=== PATIENT | female | born 1950 ===

== ENCOUNTER 2020-03-10 11:35 | Inpatient (IN) | payer MEDICARE, BC ==
--- NOTE | 2020-03-10 12:37 | RAD ---
EXAM: Chest one view: HISTORY: Injury from a fall COMPARISON: None FINDINGS: Heart size: Within normal limits. Lungs: Clear of acute process. No evidence for confluent pneumonia, pleural effusion, acute edema, or pneumothorax, or other signifi cant acute process. IMPRESSION: No significant acute intrathoracic disease. Atherosclerosis of the aorta
--- NOTE | 2020-03-10 12:39 | RAD ---
Exam: AP pelvis one view: HISTORY: Injury from a fall COMPARISON: None FINDINGS: Bony demineralization. Arthrosis and degenerative change. Prominent vascular calcifications. No evidence for fracture, dislocation, or other significant acute osseous abnormality. IMPRESSION: No significant acute process.
[2020-03-10 12:40] LABS: #Lymphocytes 0.6 thou/uL (1.20-3.40); #Monocytes 1.1 thou/uL (0.11-0.59); #Neutrophils 7.5 thou/uL (1.40-6.50); %Basophils 0.2 % (0.0-1.0); %Eosinophils 0.4 % (0.0-10.0); %Lymphocytes 6.4 % (21.0-51.0); %Monocytes 11.8 % (0.0-10.0); %Neutrophils 81.2 % (42.0-75.0); Hemoglobin 12.3 g/dL (12.0-16.0); Mean Corpuscular HGB CONC 33.3 g/dL (32.0-36.0); Mean Corpuscular Hemoglobin 33.2 pg (27.0-31.0); Mean Corpuscular Volume 99.6 fL (78.0-98.0); Mean Platelet Volume 8.5 fL (7.4-10.4); Platelet Count 171 thou/uL (130-400); RBC Distribution Width 13.7 % (11.5-14.5); Red Blood Cell (RBC) Count 3.71 mill/uL (4.20-5.40); White Blood Cell (WBC) Count 9.3 thou/uL (4.8-10.8)
--- NOTE | 2020-03-10 12:40 | RAD ---
XR Hip Lt 2-3 View History: Pain after a fall Comparison: None Findings: There is a fracture of the left superior pubic ramus at the pubic root. Left inferior pubic ramus fractures also present. The femoral head and neck appear to be intact. No definite acetabular fracture. Severe vascular calcifications. Impression: Mildly displaced left superior and inferior pubic rami fractures.
[2020-03-10 12:51] LABS: ALT (SGPT) 12 U/L (8-55); AST (SGOT) 30 U/L (5-34); Albumin 3.5 g/dL (3.4-4.8); Alkaline Phosphatase 75 U/L (40-110); Anion Gap 13 mmol/L (10-20); BUN (Urea Nitrogen) 11 mg/dL (9.8-20.1); Bilirubin, Total 2.1 mg/dL (0.2-1.2); Calc. Creatinine Clearance 0 mL/min (70-130); Calcium 9.1 mg/dL (7.8-10.44); Carbon Dioxide 24 mmol/L (23-31); Chloride 106 mmol/L (98-107); Estimated GFR-MDRD 72; Globulin 2.7 g/dL (2.4-3.5); Glucose 182 mg/dL (80-115); Protein, Total 6.2 g/dL (6.0-8.3); Sodium 139 mmol/L (136-145)
[2020-03-10 12:57] LABS: Bacteria/HPF 4+ HPF (None Seen); Bilirubin Negative (Negative); Blood, Urine 1+ (Negative); Clarity Extra Turbid (Clear); Glucose, Urine (Dipstick) Normal (Negative); Ketone, Urine Negative (Negative); Leukocyte 500 Leu/uL (Negative); Nitrite Negative (Negative); Protein, Urine (Dipstick) 20 mg/dL (Neg-Trace); RBC/HPF 0-3 HPF (0-3); Specific Gravity, Urine 1.015 (1.002-1.036); Squamous Epithelial 0-3 HPF (0-3); Urobilinogen Normal mg/dL (Less than 2); WBC/HPF Greater than 50 HPF (0-3); pH, Urine 5.5 (5.0-9.0)
--- NOTE | 2020-03-10 13:06 | CT ---
EXAM: Brain CTWithout contrast: HISTORY: Injury from a fall COMPARISON: None FINDINGS: No focal mass or midline shift. No intra or extra-axial hemorrhage. Sinuses and mastoids are clear of acute process. IMPRESSION: No mass or bleed or other significant acute intracranial process.
[2020-03-10] MEDS ORDERED: cefTRIAXone\\ROCEPHIN 1 GM VIAL ONE (13:25)
--- NOTE | 2020-03-10 13:29 | CT ---
Exam: Lumbar spine CT scan without IV contrast: HISTORY: Injury from a fall with pain FINDINGS: Bony demineralization. There is a very slightly comminuted essentially nondisplaced vertical slightly oblique fracture through the left sacral alar region with a horizontal component at S2. The SI joints demonstrate some osteoarthrosis change but are not abnormally widened. There are very extensiv e vascular calcifications. There is a right-sided pelvic kidney, presumably a transplanted kidney. No evidence for acute lumbar spine fracture. Pars defect at L5 with very minute anterolisthesis. No s ignificant moderate to severe lumbar stenosis. Possible small faint gallstone/stones/sludge. IMPRESSION: No evidence for acute fracture or dislocation of the lumbar spine. Pars defects at L5 bilaterally with very mild grade 1 anterolisthesis. Left sacral alar fracture. Evidence for a right-sided pelvic, probably transplanted kidney
[2020-03-10 15:50] LABS: INR-International Normal Ratio 1.1
[2020-03-10 15:51] LABS: PTT 28.7 sec (22.9-36.1)
[2020-03-10 16:14] LABS: Troponin I 6.988 ng/mL (< 0.028)
[2020-03-10] MEDS ORDERED: Aspirin Chewable 81 MG TAB ONE (16:18)
[2020-03-10 16:44] LABS: Magnesium 1.8 mg/dL (1.6-2.6); Phosphorus 3.3 mg/dL (2.3-4.7)
[2020-03-10] MEDS ORDERED: Magnesium 2 GM/50 ML 2 GM in Premix Bag 1 BAG IVPB SCH (17:30)
[2020-03-10] MEDS ORDERED: Ondansetron ODT 4 MG TAB PO PRN (19:36)
[2020-03-10] MEDS ORDERED: Ondansetron PF 4 MG/2 ML Vial IVP PRN (19:36)
[2020-03-10] MEDS ORDERED: Acetaminophen 325 MG TAB PO PRN (19:36)
[2020-03-10] MEDS ORDERED: Loratadine 10 MG TAB PO PRN (19:55)
[2020-03-10] MEDS ORDERED: Acetaminophen 500 MG TAB PO PRN ×2 (20:05→21:16)
[2020-03-10] MEDS ORDERED: traMADol HCl 50 MG TAB PO PRN (20:08)
[2020-03-10 20:28] LABS: CKMB 6.8 ng/mL (0-6.6)
[2020-03-10 20:29] VITALS: BMI 22.1
--- NOTE | 2020-03-10 20:51 | PDOC.FPRHP ---
- History of Present Illness Chief Complaint: Fall History of Present Illness: 69 y/o F reports to ED today after being found by her son at home this morning, down after a fall yesterday. Pt states that she fell around 4:30-5pm after getting up from her dinner table. She stated the she felt a bit dizzy and lost her balance and was unable to get to her phone that was on the table. She endorsed visual and auditory hallucinations, which is not something new that she experiences. But stated that she sees "people" in her attic who live there and talk to her. In speaking with her son, he stated that patient was having some memory issues over the past few months, but is otherwise able to care for herself and babysits her grandchildren regularly. ED Course: In the ED pt was teixeira scanned and L superior ischial ramus and inferior ischiopubic ramus fracture was found. UA showed UTI. Trop was 6.98, no EKG changes. She was given ASA and 1g of rocephin. - Allergies/Adverse Reactions Allergies Allergy/AdvReac Type Severity Reaction Status Date / Time No Known Allergies Allergy Unverified 03/10/20 17:17 - Home Medications Medication Instructions Recorded Confirmed Type Amlodipine [Norvasc] 5 mg PO DAILY 03/10/20 03/10/20 History Ascorbic Acid [Vitamin C Chewable 250 mg PO DAILY 03/10/20 03/10/20 History Tablet] Atorvastatin Calcium 40 mg PO DAILY 03/10/20 03/10/20 History Cholecalciferol (Vitamin D3) 5,000 unit PO DAILY 03/10/20 03/10/20 History [Vitamin D3] Cyanocobalamin (Vitamin B-12) 1,000 mcg SL DAILY 03/10/20 03/10/20 History [Vitamin B-12] Ergocalciferol (Vitamin D2) 1,250 mcg PO SEEPHYS 03/10/20 03/10/20 History [Vitamin D2] Fexofenadine HCl [Devi Allergy] 180 mg PO DAILY 03/10/20 03/10/20 History Levothyroxine Sodium 25 mcg PO DAILY 03/10/20 03/10/20 History Magnesium 400 mg PO BID 03/10/20 03/10/20 History NIFEdipine [Nifedipine ER] 30 mg PO DAILY 03/10/20 03/10/20 History predniSONE [Prednisone] 5 mg PO DAILY 03/10/20 03/10/20 History Acetaminophen [Tylenol Extra 1,000 mg PO Q8H PRN tab 03/12/20 Rx Strength] Aspirin [Ecotrin Low Strength] 81 mg PO DAILY tab 03/12/20 Rx Carvedilol [Coreg] 12.5 mg PO BID-WM tab 03/12/20 Rx Enoxaparin Sodium [Lovenox] 60 mg SC 0900,2100 syringe 03/12/20 Rx Metoclopramide [Reglan Oral 5 mg PO ACHS udcup 03/12/20 Rx Solution] Ondansetron [Zofran ODT] 4 mg PO Q6H PRN tab 03/12/20 Rx Tacrolimus [Prograf] 1 mg PO HS cap 03/12/20 Rx Tacrolimus [Prograf] 2 mg PO QAM cap 03/12/20 Rx cefTRIAXone\\ROCEPHIN [Rocephin] 1 gm IVPB 1300 vial 03/12/20 Rx hydrALAZINE [Apresoline] 10 mg PO DAILY tab 03/12/20 Rx traMADol HCl [Ultram] 50 mg PO Q6H PRN tab 03/12/20 Rx - History PMHx: -dimentia -hypothyroidism -HTN -s/p kidney transplant -hx of DVT -hx of c. diff PSHx: -kidney transplant, 2016 -AV fistula, 2017 -IVC placed and removed -tubal ligation -tonsillectomy -bl cataract FHx: -mother and father: [place] Social: -lives alone. no etoh, drug use. former smoker. - Review of Systems General: denies: fever/chills, fatigue Eyes: denies: eye pain, vision changes ENT: denies: nasal congestion Respiratory: denies: cough, congestion, shortness of breath Cardiovascular: denies: chest pain, palpitation Gastrointestinal: denies: nausea, vomiting, diarrhea, constipation, abdominal pain Genitourinary: reports: dysuria. denies: incontinence, polyuria Skin: denies: rashes, lesions Musculoskeletal: reports: pain. denies: swelling Neurological: reports: other (no headache). denies: syncope Psychological: reports: other (visual and auditory hallucinations). denies: anxiety, depression - Vital signs BP: 149/66, HR 74, RR 16, O2 96, Temp 97.8 - Physical Exam Constitutional: NAD, awake, alert and oriented HEENT: normocephalic and atraumatic, grossly normal hearing Neck: supple, FROM Heart: RRR, normal S1/S2, other (grade 2 systolic, cresendo-decresendo murmur) Lungs: CTAB, no respiratory distress, good air movement, no rales/rhonchi, no wheezing Abdomen: soft, non-tender, bowel sounds present, no masses/distention Musculoskeletal: normal structure, other (limited ROM in left leg 2/2 pain) Neurological: no focal deficit, CN II-XII intact (grossly) Skin: no rash/lesions Heme/Lymphatic: other (scattered purpura noted on UEs) Psychiatric: normal mood and affect, good judgment and insight, intact recent and remote memory (A&O x3, was able to remember correct dates of procedures, addresses of physician offices, names of physicians she sees), other (+ visual and auditory hallucinations) FMR H&P: Results - Labs Result Diagrams: 03/10/20 12:22 03/12/20 06:34 Lab results: WBC 9.3 thou/uL (4.8-10.8) 03/10/20 12:22 Hgb 12.3 g/dL (12.0-16.0) 03/10/20 12:22 Hct 37.0 % (36.0-47.0) 03/10/20 12:22 MCV 99.6 fL (78.0-98.0) H 03/10/20 12:22 Plt Count 171 thou/uL (130-400) 03/10/20 12:22 Neutrophils % 81.2 % (42.0-75.0) H 03/10/20 12:22 Sodium 139 mmol/L (136-145) 03/10/20 12:22 Potassium 4.0 mmol/L (3.5-5.1) 03/10/20 12:22 Chloride 106 mmol/L (98-107) 03/10/20 12:22 Carbon Dioxide 24 mmol/L (23-31) 03/10/20 12:22 BUN 11 mg/dL (9.8-20.1) 03/10/20 12:22 Creatinine 0.79 mg/dL (0.6-1.1) 03/10/20 12:22 Glucose 182 mg/dL (80-115) H 03/10/20 12:22 Calcium 9.1 mg/dL (7.8-10.44) 03/10/20 12:22 Total Bilirubin 2.1 mg/dL (0.2-1.2) H 03/10/20 12:22 AST 30 U/L (5-34) 03/10/20 12:22 ALT 12 U/L (8-55) 03/10/20 12:22 Alkaline Phosphatase 75 U/L (40-110) 03/10/20 12:22 Creatine Kinase 233 U/L (29-168) H 03/10/20 12:22 CK-MB (CK-2) 6.8 ng/mL (0-6.6) H* 03/10/20 19:33 Serum Total Protein 6.2 g/dL (6.0-8.3) 03/10/20 12:22 Albumin 3.5 g/dL (3.4-4.8) 03/10/20 12:22 Urine Ketones Negative mg/dL (Negative) 03/10/20 12:41 Urine Blood 1+ (Negative) A 03/10/20 12:41 Urine Nitrite Negative (Negative) 03/10/20 12:41 Ur Leukocyte Esterase 500 Kevin/uL (Negative) A 03/10/20 12:41 Urine RBC 0-3 HPF (0-3) 03/10/20 12:41 Urine WBC Greater than 50 HPF (0-3) A 03/10/20 12:41 Ur Squamous Epith Cells 0-3 HPF (0-3) 03/10/20 12:41 Urine Bacteria 4+ HPF (None Seen) A 03/10/20 12:41 - EKG Interpretation EKG: -normal sinus rhythm, LVH, left atrial enlargement, no ST changes - Radiology Interpretation Other Status: image reviewed by me, report reviewed by me (Hip XR: midly displaced left superior and inferior pubic rami fractures. Pelvic XR: fractures of left superior ischial ramus and inferior ischiopubic ramus. Lumbar CT: no evidence for acute dislocation of lumbar spine. pars defects at L5 bilaterally with very mild grade 1 anteriolisthesis. left sacral alar fracture. evidence for a right sided pelvic, transplanted kidney.) Chest x-ray Status: image reviewed by me, report reviewed by me (no acute process, atherosclerosis of aorta) CT scan - head Status: image reviewed by me, report reviewed by me (no acute bleed) FMR H&P: A/P - Problem List (1) UTI (urinary tract infection) Status: Acute (2) Fall Status: Acute Code(s): W19.XXXA - UNSPECIFIED FALL, INITIAL ENCOUNTER (3) Dementia Status: Acute Code(s): F03.90 - UNSPECIFIED DEMENTIA WITHOUT BEHAVIORAL DISTURBANCE (4) Elevated troponin Status: Acute Code(s): R79.89 - OTHER SPECIFIED ABNORMAL FINDINGS OF BLOOD CHEMISTRY (5) Hypothyroidism Status: Acute Code(s): E03.9 - HYPOTHYROIDISM, UNSPECIFIED (6) Hx of deep venous thrombosis Status: Acute Code(s): Z86.718 - PERSONAL HISTORY OF OTHER VENOUS THROMBOSIS AND EMBOLISM (7) Status post kidney transplant Status: Acute Code(s): Z94.0 - KIDNEY TRANSPLANT STATUS (8) Hypertension Status: Acute Code(s): I10 - ESSENTIAL (PRIMARY) HYPERTENSION - Plan ## Pelvic fracture -s/p fall -non operative, formally consult ortho in AM -OT/PT consult -bed rest -prn pain control ## Elevated troponin/NSTEMI -EKG: no ST changes -trop trend: 6.98 --> 7.44 --> 6.48 -continue to trend troponin -on therapeutic dose of eliquis -echo ordered -consulted cardiology, will see in AM ## UTI w/o sepsis -urine culture pending -rocephin started 03/10 -afebrile, no WBC, no systemic signs of infection ## HTN -home meds: amlodipine, coreg, hydralyzine ## Dimentia -per son, pt has been having memory issues for past few months -family history of Alzheimers in parents -not on medications ## Hypothyroidism -home med: levothyroxine -TSH 1.99 ## s/p r renal transplant -on tacrolimus, prednisone ## hx of DVT -x2 in L leg -IVC placed and removed in past -on eliquis at home VTE PPX: eliquis GI PPX: none Diet: NPO at 12AM IVF: LR Code: Full PCP: Alexandr Contacts: Sebastien (son) [phone]. Dr. Mac Rucker (state patrol officer) [phone] Dispo: admitted inpatient, telemetry. cardiology to see pt in AM. consult ortho in AM and f/u with recommendations. FMR H&P: Upper Level - Plan Date/Time: 03/10/202047 I, Alia Melvin, have evaluated this patient and agree with findings/plan as outlined by lab intern resident. Pertinent changes/additions are listed here. 69YOF with PMH notable for HTN, hypothyroidism & Hx of renal transplant who presented to the ED today after being found down at home by her son at home earlier this morning. Per the patient, she reports that after dinner yesterday evening she states fell on or tripped over a table in her home. She stated that prior to the fall she felt dizzy and lost her balance and was unable to get up to get to her phone to call for help. She and her son confirm that he found her when he stopped by her house to check on her around ~1000 today. He then called the ambulance to take her to the ED for further evaluation. Of note, the patient endorsed visual and auditory hallucinations following her fall. Reported that she saw "people with cats" in her attic who were talking to her. She reports that last time she had similar hallucinations was when she was hospitalized for her renal transplant. Only other pertinent symptoms on ROS were left hip pain & dysuria. On evaluation in the ED a workup was done for her confusion and fall including which was notable for a L superior & inferior rami fractures. Her UA was dirty c/w a UTI as well. Lastly, a troponin was ordered by the hospitalist who was initially called to admit the patient which did result + at 6.9. However, that patient's initial & repeat EKGs were WNLs in NSR & she never endorsed any chest pain. Her Mg level was 1.8 and her folate was also low at 6.4. She was given 324mg PO ASA, 1g of Rocephin, & 2g of IV Mg in the ER. On exam the patient did endorse hearing & seeing things that were not there while she was at home. She was in NAD & did have a 3/6 systolic ejection murmur noted on exam. She also had limited ROM in her left hip/leg 2/2 pain. Regarding her left hip fracture, ortho was consulted in the ED and reported that the fracture was non-surgical and that they would see the patient in the AM. Will place a formal consult. PT & OT consulted as well. Regarding her acute psychosis/encephalopathy 2/2 her UTI, will continue IV rocephin 1g QD pending Cx results for sensitivities. Regarding her elevated troponin, Cardiology, Dr. Jerome, was initially consulted by the hospitalists. After discussing the case with him, will increase home Eliquis to Th dosing and continue to trend her troponins. ECHO ordered as patient also had a notable murmur on exam. Cards to see in the AM as long as she remains stable. For her folate deficiency, will continue folvite which was started by the hospitalists. Will resume her home meds for her other chronic conditions. Addendum - Attending - Attending Attestation Date/Time: 04/04/20 [id number] I personally evaluated the patient and discussed the management with Dr. [] I agree with the History, Examination, Assessment and Plan documented above with any addition or exceptions noted below - 69 y/o F with h/o hypothyroidism, HTN, s/p renal transplant, h/o DVT brought to ED today after being found by her son at home this morning, down after a fall yesterday. Pt states that she fell around 4:30-5pm after getting up from her dinner table. She stated the she felt a bit dizzy and lost her balance and was unable to get to her phone that was on the table. She endorsed visual and auditory hallucinations, which is not something new that she experiences. But stated that she sees "people" in her attic who live there and talk to her. In speaking with her son, he stated that patient was having some memory issues over the past few months, but is otherwise able to care for herself and babysits her grandchildren regularly. PMH/PSH/Meds/SH reviewed and agree with resident's documentation. Afebrile VSS Exam repeated by me and agree with resident's findings. A/P: 1)
[2020-03-10] MEDS: Metoclopramide 10 MG/10 ML UDCUP PO SCH (20:57)
[2020-03-10] MEDS: Folic Acid 1 MG TAB PO SCH (20:58)
[2020-03-10] MEDS: Atorvastatin Calcium 40 MG TAB PO SCH (20:58)
[2020-03-10] MEDS ORDERED: Apixaban 5 MG TAB PO SCH (21:00)
[2020-03-10] MEDS ORDERED: hydrALAZINE 20 MG/ML VIAL SLOW IVP PRN (21:24)
[2020-03-10] MEDS ORDERED: Magnesium 2 GM/50 ML 1 GM in Premix Bag 1 BAG IVPB SCH (21:30)
[2020-03-10] MEDS ORDERED: Lactated Ringer's 1,000 ML IV SCH (21:30)
[2020-03-10 22:46] LABS: Bilirubin, Direct 0.6 mg/dL (0.1-0.3); Bilirubin, Total 1.7 mg/dL (0.2-1.2)
[2020-03-10 22:55] LABS: Critical Call Chem Troponin I RESULT DECREASING
[2020-03-11] MEDS: traMADol HCl 50 MG TAB PO PRN ×2 (00:04→14:31)
[2020-03-11 04:51] LABS: ALT (SGPT) 9 U/L (8-55); AST (SGOT) 22 U/L (5-34); Albumin 3.1 g/dL (3.4-4.8); Alkaline Phosphatase 64 U/L (40-110); Anion Gap 9 mmol/L (10-20); BUN (Urea Nitrogen) 12 mg/dL (9.8-20.1); Bilirubin, Total 1.3 mg/dL (0.2-1.2); Calc. Creatinine Clearance 68 mL/min (70-130); Calcium 8.4 mg/dL (7.8-10.44); Carbon Dioxide 27 mmol/L (23-31); Chloride 105 mmol/L (98-107); Estimated GFR-MDRD 75; Globulin 2.4 g/dL (2.4-3.5); Glucose 148 mg/dL (80-115); Magnesium 2.2 mg/dL (1.6-2.6); Potassium 3.6 mmol/L (3.5-5.1); Protein, Total 5.5 g/dL (6.0-8.3); Sodium 137 mmol/L (136-145)
[2020-03-11 04:58] LABS: Critical Call Chem Troponin I RESULT DECREASING
[2020-03-11 05:16] LABS: CKMB 4.7 ng/mL (0-6.6)
--- NOTE | 2020-03-11 05:56 | PDOC.FM ---
- Subjective Subjective: No acute events overnight. Admitted for fall leading to pelvic fracture, subsequently found to have asymptomatic NSTEMI. She continues to deny any chest pain, SOB, diaphoresis, N/V. Reports she has been having intermittent dizziness for some time, described as lightheadedness upon standing. This is worse when she is in her house, without air conditioning. She states that she always feels cold and does not like to use the air conditioning. - Objective Vital Signs & Weight: Vital Signs (12 hours) Temp Pulse Resp BP BP Pulse Ox 03/11/20 03:08 98.9 F 80 18 138/59 L 93 L 03/10/20 23:55 98.2 F 77 18 130/58 L 95 03/10/20 20:30 74 20 166/73 H 95 03/10/20 20:00 95 03/10/20 19:15 98.3 F 71 20 219/90 H 95 Weight Weight 62.233 kg I&O: 03/09/20 03/10/20 03/11/20 06:59 06:59 06:59 Output Total 700 Balance -700 Result Diagrams: 03/10/20 12:22 03/11/20 03:52 EKG Reviewed by me: Yes (Tele reviewed, NSR) Phys Exam - Physical Examination Constitutional: NAD HEENT: PERRLA dry MMs, poor dentition Neck: no nodes, supple, full ROM Respiratory: no wheezing, no rales, no rhonchi, clear to auscultation bilateral Cardiovascular: RRR systolic murmur 3/6 RUSB Gastrointestinal: soft, non-tender, no distention, positive bowel sounds Musculoskeletal: no edema, pulses present Neurological: non-focal Lymphatic: no nodes Psychiatric: A&O x 3 Skin: no rash Deviation from normal: diffuse senile purpura on extremities Dx/Plan - Plan Plan: ## Pelvic fracture -s/p fall on 03/09 -non operative, ortho consulted, f/u recs -OT/PT consult -bed rest -prn pain control ## Elevated troponin/NSTEMI -EKG: no ST changes -trop trend: 6.98 --> 7.44 --> 6.48 --> 4.3 -continue to trend troponin -received therapeutic eliquis; will discontinue and change to lovenox in preparation for catheterization, likely Saturday -echo ordered -consulted cardiology, f/u recs -advanced to heart healthy diet since will be a few days before cath can be performed ## UTI w/o sepsis -urine culture pending -rocephin started 03/10 -afebrile, no WBC, no systemic signs of infection ## HTN -home meds: amlodipine, coreg, hydralyzine ## Dementia -per son, pt has been having memory issues for past few months -family history of Alzheimers in parents -not on medications -A&O x4 today ## Hypothyroidism -home med: levothyroxine -TSH 1.99 ## s/p r renal transplant -on tacrolimus, prednisone -sees Dr. Mac Rucker, nephro, ## hx of DVT -x2 in L leg -IVC placed and removed in past -on eliquis at home, will hold and use lovenox VTE PPX: lovenox GI PPX: none Diet: Heart Healthy IVF: LR Code: Full PCP: Alexandr Contacts: Sebastien (son) [phone]. Dr. Mac Rucker (administrative support clerk) [phone] Dispo: admitted inpatient, telemetry. cardiology and ortho to see. ELOS >2 days. Addendum - Attending - Attending Attestation Date/Time: 03/11/20 3850 I personally evaluated the patient and discussed the management with Dr. Quintero I agree with the History, Examination, Assessment and Plan documented above with any addition or exceptions noted below. Cards for NSTEMI. Ortho for pelvic armin fracture. Checking BNP. Holding antihypertensives 2/2 low BP. f/u specialist recs.
[2020-03-11] MEDS: Levothyroxine Sodium 25 MCG TAB PO SCH (06:15)
[2020-03-11 06:17] LABS: Hemoglobin A1c 5.5 % (4.0-6.0)
[2020-03-11] MEDS ORDERED: Carvedilol 25 MG TAB PO SCH (08:00)
[2020-03-11 08:50] LABS: Cardiac Risk 3.8 (Less than 4.5)
[2020-03-11] MEDS: Metoclopramide 10 MG/10 ML UDCUP PO SCH ×4 (09:02→20:57)
[2020-03-11] MEDS: Enoxaparin Sodium 60 MG/0.6 ML SYRINGE SC SCH ×2 (09:02→20:58)
[2020-03-11] MEDS: Folic Acid 1 MG TAB PO SCH ×2 (09:02→20:58)
[2020-03-11] MEDS: Amlodipine 5 MG TAB PO SCH (09:03)
[2020-03-11] MEDS: Ascorbic Acid 500 mg Chewable Tablet PO SCH (09:03)
[2020-03-11] MEDS: Cholecalciferol 1,000 UNITS (25 MCG) TAB PO SCH (09:03)
[2020-03-11] MEDS: hydrALAZINE 10 MG TAB PO SCH (09:04)
[2020-03-11] MEDS: predniSONE 5 MG TAB PO SCH (09:04)
--- NOTE | 2020-03-11 09:10 | CON ---
DATE OF CONSULTATION: 03/11/2020 REQUESTING PHYSICIAN: Family Medicine. CONSULTING PHYSICIAN: Addison Gunn MD REASON FOR CONSULTATION: Left pubic rami fractures. HISTORY OF PRESENT ILLNESS: This is a 69-year-old female, who was found down at her home after a fall. The patient states that she fell and was unable to get up. She states that she was lying on the floor for approximately 17 hours before somebody found her. Upon workup in the Emergency Department, she was found to have left superior and inferior pubic rami fracture. We have been consulted for this reason. She was also found to have a urinary tract infection as well as elevated cardiac enzymes. She has been admitted to the telemetry floor and is under the care of the Family Medicine Service. Currently, at bedside, the patient reports left groin pain that is worse with movement and relieved with rest. No distal numbness or tingling. It is greater on the left side than the right, but when she rolls onto either side, it does reproduce pain in the left groin. She denies any other orthopedic complaints at this time. She states she normally ambulates at home without any assistive aid, but has utilized a walker in the past after a prolonged hospital stay and has a walker available at home for use. PAST MEDICAL HISTORY: Significant for dementia, hypothyroidism, hypertension, status post kidney transplant, history of DVT, and history of C diff. PAST SURGICAL HISTORY: Kidney transplant in 2017, AV fistula in 2017, IVC placed and removed, tubal ligation, tonsillectomy, bilateral cataracts. FAMILY HISTORY: Reviewed and noncontributory. SOCIAL HISTORY: The patient lives alone. She is a former smoker. No alcohol or drug use. She independently ambulates. REVIEW OF SYSTEMS: Ten-point review of systems conducted and otherwise negative except for stated above. PHYSICAL EXAMINATION: VITAL SIGNS: Current vital signs including temperature of 98.9, pulse of 80, respiratory rate of 18, blood pressure of 138/59, and O2 saturation of 93 on room air. GENERAL: The patient is awake and alert. She is pleasant and cooperative with exam today. She is in no apparent distress. HEENT: Head is normocephalic and atraumatic. NECK: Supple. Trachea midline. Breathing nonlabored. EXTREMITIES: Evaluation of the bilateral lower extremities shows the right lower extremity to be held in a position of comfort with a pillow propped up behind the knee. The left lower extremity is in extension at the hip, extension at the knee. [place] does reproduce pain at the left hip. Pain with passive range of motion of the hip. Knee is nontender. No pain with rocking of the pelvis. Right lower extremity and bilateral upper extremities show no acute injuries or deformities. She does have full range of motion in these. RADIOGRAPHIC FINDINGS: Today, reviewed including views of the left hip demonstrate pubic rami fractures. ASSESSMENT: Left pubic rami fractures. PLAN: At this point, plan will be nonoperative management. The patient may weightbear as tolerated. She will need an assistive device such as a walker. She may be limited by her own pain. No surgical intervention is anticipated at this time. She may follow up in our office for a re-evaluation in 4 to 6 weeks. Please re-consult Orthopedics for any future concerns. Job ID: [id number]
[2020-03-11] MEDS ORDERED: Aspirin 81 mg Enteric Coated Tablet PO SCH (11:30)
[2020-03-11] MEDS ORDERED: cefTRIAXone\\ROCEPHIN 1 GM in Sodium Chloride 0.9% 100 ML IVPB SCH (13:00)
--- NOTE | 2020-03-11 15:37 | CON ---
DATE OF CONSULTATION: HISTORY OF PRESENT ILLNESS: Sparkle Nicole is a 69-year-old white female with history of renal transplantation. She states she has never been told that she had any type of heart problem in the past and has undergone evaluations previously. She was found down by her son yesterday morning. The patient stated that she became dizzy and tripped over a table; however, there is not a table where she says there was that she tripped over. She was on the floor for approximately 17 hours according to the patient. There were people living in her attic and cats there that she talked to and had hallucinations. Apparently, that is not a common problem for her, although she has been having worsening memory. She has been found to have a nondisplaced fractured pelvis and no other significant physical trauma from the fall. She was found to have abnormal troponin-I. She denies any chest discomfort or shortness of breath in the past nor after the fall. PAST MEDICAL HISTORY: 1. History of DVT in August 2004 and in 07/2006. She states that she had an IVC placed in 07/2017 around the time of her renal transplant, but ultimately, the IVC filter was removed. Currently, she is on Eliquis 2.5 mg b.i.d. at home; ( however, since being admitted, that has been increased to 10 b.i.d. for unclear reasons to me). 2. Hypertension. 3. Hypercholesterolemia. 4. Dementia. 5. Hypothyroidism. OPERATIONS: 1. Renal transplant. 2. IVC filter placement and removal. 3. Tubal ligation. 4. Bilateral cataract surgery. 5. Tonsillectomy. MEDICATIONS: 1. Amlodipine 5 mg q.a.m. 2. Eliquis 2.5 b.i.d. 3. Atorvastatin 40 daily. 4. Carvedilol 25 mg daily. 5. Devi 180 daily. 6. Hydralazine 100 mg daily. 7. Levothyroxine 25 mcg daily. 8. Magnesium 400 mg b.i.d. 9. Metoclopramide 5 b.i.d. 10. Nifedipine 30 daily. 11. Prednisone 5 mg daily. 12. Tacrolimus 1 mg t.i.d. ALLERGIES: NONE. SOCIAL HISTORY: She does not smoke at the present time, although she did in the past. FAMILY HISTORY: Negative for coronary artery disease. REVIEW OF SYSTEMS: Ten-point review of systems is otherwise unremarkable. PHYSICAL EXAMINATION: VITAL SIGNS: Blood pressure 149/67 and pulse of 75. HEENT: PERRL. NECK: Supple. CHEST: Clear. CARDIAC: S1 and S2 are normal without any S3 or S4. There is a 2/6 systolic murmur along both upper sternal borders. Carotid upstrokes normal without bruits. ABDOMEN: Normal bowel sounds without tenderness or organomegaly. EXTREMITIES: No clubbing, cyanosis, or edema. NEUROLOGIC: Grossly intact. SKIN: Warm and dry. LABORATORY DATA: EKG reveals normal sinus rhythm with inverted T-wave in lead III, but no acute changes. Hemoglobin 12.3, hematocrit 37.0, white count 9300, and platelets 171,000. INR 1.1. Sodium 137, potassium 3.6, chloride 105, carbon dioxide 27, BUN 12, creatinine 0.76, and glucose 143. Troponin-I is up to 0.7440. Cholesterol 155, triglycerides 151, HDL 41, and LDL 84. TSH is normal. CK 233 and CK-MB 6.8. IMPRESSION: 1. Fall at home. She stated that she remembers falling, remembers hitting her shoulder when she hit the floor. I doubt that she had a syncopal episode. 2. Hrk-[id number]-gofbmdpye myocardial infarction, probably type 1 with the current elevation of the troponin-I. 3. History of deep vein thrombosis, on chronic suppressive therapy with Eliquis 2.5 b.i.d. In the hospital, she was placed on 10 mg b.i.d. for unclear reasons. 4. Hypertension. 5. Hypercholesterolemia. 6. Status post renal transplant. 7. Hypothyroidism. 8. Pelvic fracture from fall. 9. Probable urinary tract infection. RECOMMENDATIONS: With receiving Eliquis 10 mg last night, the patient is not a candidate for cardiac catheterization at this time. Eliquis will be discontinued, instead she will be placed on Lovenox 1 mg/kg b.i.d. Also, she will be started on aspirin. With troponin-I this high, it is recommended she undergo cardiac catheterization. Also, echocardiogram will be performed to assess her murmur. Risks of cardiac catheterization were discussed with the patient as well as with her son, Sebastien, by phone at a later time. Risks include , myocardial infarction , dye reaction, vascular injury, CVA, transfusion, limb loss, renal loss, etc. Also risk of intervention with PTCA and stent placement were discussed including , myocardial infarction, emergent CABG, restenosis, stent thrombosis, vessel perforation, etc. She has no history of gastrointestinal bleeding or CVA. She has no upcoming surgeries, and overall, it is recommended that a drug-eluting stent be placed if needed. However, it sounds as if the son wishes her to be transferred to [place]. Job ID: [id number] MTDD
--- NOTE | 2020-03-11 16:32 | PQF ---
2018 [facility] Updated: CLINICAL DOCUMENTATION CLARIFICATION FORM: Patient Name: LEIA MARTINEZ Date of : 1950 Account: [id number] Admit Date: 03/10/2020 Facility: [facility] Dr. Hopkins / Dr. Quintero Date: 03/14/20 Please exercise your independent, professional judgment in responding to the clarification form. Clinical indicators are provided on the bottom of this form for your review. Please check appropriate box(es): [ x ] Encephalopathy: Type: [ x ] Acute [ ] Subacute [ ] Chronic Etiology: [ ] Hypertensive [ x ] Metabolic [ ] Toxic [ ] Hepatic w/o Coma [ ] Wernickes [ ] Drug induced: [ ] In the setting of underlying dementia [ ] Unspecified [ ] Other (please specify) [ ] Transient Alteration of Awareness [ ] Other diagnosis [ ] Unable to determine In addition, please specify: Present on Admission (POA): [ x ] Yes [ ] No [ ] Unable to determine For continuity of documentation, please document condition throughout progress notes and discharge summary. Thank You. To be completed by CDI/Coding staff for physician review: CLINICAL INDICATORS - SIGNS / SYMPTOMS / LABS / RESULTS AND LOCATION IN EMR ER NOTE: PATIENT SEEING PEOPLE ON THE CEILING THAT WERE LIVING IN HER ATTIC. H&P: "ENCEPHALOPATHY" RISKS: UTI (ER NOTE) H/O DEMENTIA (ER NOTE) TREATMENT: IV ROCEPHIN (ER-PRESENT) LACTATED RINGERS (03/10-03/11) BLOOD CULTURES 03/[address] 03/10 CDS Signature: Hannah Moser RN Phone #: [phone] Date 03/11/20 This is a permanent part of the Medical Record [facility]
--- NOTE | 2020-03-11 16:44 | CON ---
DATE OF CONSULTATION: SERVICE: Renal Medicine. HISTORY OF PRESENT ILLNESS: Ms. Nicole is 69-year-old white female, who presented to the ER due to a fall. She was found to have pelvic fractures. Of interest, this patient is a status post cadaveric renal transplant - July 2017, hence the consultation with Nephrology. Renal function has been holding steady since the transplant. REVIEW OF SYSTEMS: Positive for a fall. No chest pain. No shortness of breath. No nausea. No vomiting. No diarrhea. No constipation. Appetite and energy level are fair. No headache. No diplopia. Positive for increased forgetfulness. Positive for occasional auditory and visual hallucination. No dysuria. No urinary frequency. No productive cough. No fever or chills. No hematochezia. No melena. HOME MEDICATIONS: Include; 1. Amlodipine 5 mg tablet once a day. 2. Eliquis 2.5 mg p.o. b.i.d. 3. Ascorbic acid 250 mg daily. 4. Atorvastatin 40 mg daily. 5. Carvedilol 25 mg p.o. daily. 6. Vitamin D3 of 5000 international units daily. 7. Vitamin B12 of 1000 mcg daily. 8. Vitamin D2 of 1250 mcg daily. 9. Levothyroxine 25 mcg daily. 10. Magnesium 400 mg p.o. b.i.d. 11. Metoclopramide 5 mg p.o. b.i.d. 12. Nifedipine ER 30 mg once a day. 13. Tacrolimus 2 mg in the morning and 1 mg at night. 14. Prednisone 5 mg once a day. 15. Hydralazine 100 mg p.o. daily ? PAST MEDICAL HISTORY: 1. History of dementia. 2. Status post ESRD. 3. Hypothyroidism. 4. Status post DVT. 5. Status post C difficile colitis. 6. The patient has history of hypertension. PAST SURGICAL HISTORY: Status post cadaveric renal transplant - July 2017, status post AV fistula, status post IVC placement with subsequent removal, status post tonsillectomy, status post bilateral tubal ligation, status post cataract surgery, and history of status post IVC filter with subsequent removal. SOCIAL HISTORY: The patient is , lives alone, 2 children. Retired employee of [employer]. Education, high school. Smoked for 20 years, one pack a day. Alcohol, currently none. No IV drug abuse. [place] [address] Sedentary lifestyle. FAMILY HISTORY: No family history of ESRD. ALLERGIES: NO KNOWN DRUG ALLERGIES. TRAUMA: None. IMMUNIZATIONS: Up-to-date. HOSPITALIZATIONS: Please see past medical history. PHYSICAL EXAMINATION: VITAL SIGNS: Blood pressure 155/79, heart rate 79, respiratory rate 16, temperature 97.9, and O2 saturation 97% on room air. GENERAL: The patient is awake, alert, comfortable, not in distress. SKIN: Adequate turgor. HEENT: She has a pinkish conjunctivae. Anicteric sclerae. NECK: No neck mass. No carotid bruits. No JVD. CHEST: No deformities. LUNGS: Clear breath sounds. No wheezing. No crackles. HEART: Normal sinus rhythm. No murmur. No gallops. No rubs. ABDOMEN: Globular, soft, and nontender. No masses. EXTREMITIES: No edema. No deformities. NEUROLOGICAL: Awake, oriented to 3 spheres. Moving all extremities. No tremors. No asterixis. LABORATORY DATA: Laboratories of March 10, 2020; white count 9.3, hemoglobin 12.3. Sodium 137, potassium 3.6, chloride 105, carbon dioxide 27, BUN 12, and creatinine 0.76. Hemoglobin A1c 5.5. Calcium 8.4, albumin 3.1. Troponin I 4.31. BNP 356. IMAGING DATA: On March 10, 2020; chest x-ray, no significant lesions. On March 10, 2020, CT scan of the brain, no acute intracranial abnormality. ASSESSMENT AND PLAN: 1. Status post cadaveric renal transplant. We will continue current immunosuppressive regimen. Renal function is noted to be excellent. No changes will be made with the tacrolimus. She will continue also the prednisone. 2. Status post fall with pelvic fracture. Supportive care. Orthopedic Surgery is following. Thank you for the consult. We will continue to follow. Job ID: [id number]
[2020-03-11] MEDS: Carvedilol 6.25 MG TAB PO SCH (18:27)
[2020-03-11] MEDS: Atorvastatin Calcium 40 MG TAB PO SCH (20:58)
[2020-03-11] MEDS ORDERED: Tacrolimus 1 MG CAP PO SCH (21:00)
[2020-03-12] MEDS: Levothyroxine Sodium 25 MCG TAB PO SCH (05:18)
--- NOTE | 2020-03-12 05:38 | PDOC.FM ---
- Subjective Subjective: No acute overnight events. States she feels fine this AM except for L groin/hip pain. Denies any headache, chest pain, SOB, abdominal pain, swelling. - Objective Vital Signs & Weight: Vital Signs (12 hours) Temp Pulse Resp BP Pulse Ox 03/12/20 04:00 99.1 F 71 18 116/65 94 L 03/11/20 20:00 98.4 F 74 18 146/64 H 93 L Weight Weight 63.503 kg I&O: 03/10/20 03/11/20 03/12/20 06:59 06:59 06:59 Intake Total 1080 560 Output Total 700 675 Balance 380 -115 Result Diagrams: 03/10/20 12:22 03/12/20 06:34 EKG Reviewed by me: Yes (Tele: NSR overnight) Phys Exam - Physical Examination Constitutional: NAD HEENT: PERRLA, moist MMs Neck: supple, full ROM Respiratory: no wheezing, no rales, no rhonchi, clear to auscultation bilateral Cardiovascular: RRR 3/6 systolic murmur RUSB Gastrointestinal: soft, non-tender, no distention, positive bowel sounds Musculoskeletal: no edema, pulses present ROM LLE limited 2/2 pain Neurological: moves all 4 limbs Psychiatric: normal affect, A&O x 3 Skin: no rash Dx/Plan - Plan Plan: ## Pelvic fracture -s/p fall on 03/09 -non operative, ortho consulted, f/u recs -OT/PT consult -bed rest -prn pain control ## Elevated troponin/NSTEMI -EKG: no ST changes -trop trend: 6.98 --> 7.44 --> 6.48 --> 4.3 -continue to trend troponin -received therapeutic eliquis; will discontinue and change to lovenox in preparation for catheterization, likely Saturday -echo ordered -consulted cardiology, f/u recs -advanced to heart healthy diet since will be a few days before cath can be performed ## Urinary retention -new onset 03/12 -adams placed ## Hypertension -will adjust antihypertensives as needed ## UTI w/o sepsis -urine culture pending -rocephin started 03/10 -afebrile, no WBC, no systemic signs of infection ## HTN -home meds: amlodipine, coreg, hydralyzine ## Dementia -per son, pt has been having memory issues for past few months -family history of Alzheimers in parents -not on medications -A&O x4 today ## Hypothyroidism -home med: levothyroxine -TSH 1.99 ## s/p r renal transplant -on tacrolimus, prednisone -sees Dr. Mac Rucker, nephro, ## hx of DVT -x2 in L leg -IVC placed and removed in past -on eliquis at home, will hold and use lovenox VTE PPX: lovenox GI PPX: none Diet: Heart Healthy IVF: LR Code: Full PCP: Alexandr Contacts: Sebastien (son) [phone]. Dr. Mac Rucker (technical solutions director) [phone] Dispo: admitted inpatient, telemetry. cardiology and ortho to see. ELOS >2 days. Son wishes pt to be transferred to [place], pending approval.
[2020-03-12 07:05] LABS: Anion Gap 9 mmol/L (10-20); BUN (Urea Nitrogen) 11 mg/dL (9.8-20.1); Calc. Creatinine Clearance 77 mL/min (70-130); Calcium 8.4 mg/dL (7.8-10.44); Carbon Dioxide 27 mmol/L (23-31); Chloride 105 mmol/L (98-107); Estimated GFR-MDRD 86; Glucose 112 mg/dL (80-115); Potassium 3.8 mmol/L (3.5-5.1); Sodium 137 mmol/L (136-145)
[2020-03-12] MEDS: Metoclopramide 10 MG/10 ML UDCUP PO SCH (08:45)
[2020-03-12] MEDS: Ascorbic Acid 500 mg Chewable Tablet PO SCH (08:46)
[2020-03-12] MEDS: Cholecalciferol 1,000 UNITS (25 MCG) TAB PO SCH (08:46)
[2020-03-12] MEDS: Carvedilol 6.25 MG TAB PO SCH (08:47)
[2020-03-12] MEDS: Folic Acid 1 MG TAB PO SCH (08:48)
[2020-03-12] MEDS: Amlodipine 5 MG TAB PO SCH (08:48)
[2020-03-12] MEDS: hydrALAZINE 10 MG TAB PO SCH (08:50)
[2020-03-12] MEDS: traMADol HCl 50 MG TAB PO PRN (08:50)
[2020-03-12] MEDS: predniSONE 5 MG TAB PO SCH (08:50)
[2020-03-12] MEDS: Enoxaparin Sodium 60 MG/0.6 ML SYRINGE SC SCH (08:50)
[2020-03-12] MEDS ORDERED: Tacrolimus 1 MG CAP PO SCH (09:00)
[2020-03-12] MEDS ORDERED: Aspirin 81 mg Enteric Coated Tablet PO SCH (09:00)
[2020-03-12] MEDS ORDERED: HYDROcodone/Acetaminophen 10/325 mg Tablet PO SCH (09:01)
[2020-03-12 16:37] VITALS: BP 138/64; TEMP 98.1
--- NOTE | 2020-03-12 18:31 | CON ---
DATE OF CONSULTATION: Earlier I dictated on a patient, Bhakti Ricks, Dinesh number is [id number], and really what it meant was Sparkle Nicole, M number is [id number], so the earlier progress note said Bhakti Ricks, if we can actually make that Sparkle Nicole that would be great because it was an error. I will redo Bhakti Ricks and do her correctly right now. Job ID: [id number]
--- NOTE | 2020-03-14 01:57 | DIS ---
DATE OF ADMISSION: 03/10/2020 DATE OF DISCHARGE: 03/12/2020 RESIDENT: Dana Quintero DO ADMITTING ATTENDING: Shreya Hopkins MD DISCHARGE ATTENDING: Diego Ortega MD CONSULTS: 1. Cardiology, Dr. Nava. 2. Ortho, Dr. Hamilton. 3. Nephrology, Dr. Hernandez. PROCEDURES: 1. Echocardiogram, EF 60% to 65%. 2. CT brain, CT lumbar spine, x-ray pelvis, x-ray hip, x-ray chest. PRIMARY DIAGNOSES: NSTEMI, pelvic fracture, urinary tract infection. SECONDARY DIAGNOSES: 1. Hypertension. 2. Dementia. 3. Hypothyroid. 4. Status post renal transplant. 5. History of deep venous thrombosis. DISCHARGE MEDICATIONS: 1. Vitamin B12 of 1000 mcg daily. 2. Vitamin C 250 mg tab daily. 3. Vitamin D 5000 units daily. 4. Vitamin D2 of 1250 mcg daily. 5. Nifedipine 30 mg daily. 6. Fexofenadine 180 mg daily. 7. Amlodipine 5 mg daily. 8. Levothyroxine 25 mcg daily. 9. Magnesium 200 mg daily. 10. Atorvastatin 40 mg daily. 11. Prednisone 5 mg daily. 12. Acetaminophen 1000 mg p.o. q.8 hours p.r.n. 13. Aspirin 81 mg p.o. daily. 14. Carvedilol 12.5 mg p.o. b.i.d. 15. Rocephin 1 g IV daily. 16. Lovenox 60 mg subcu twice daily. 17. Hydralazine 10 mg p.o. daily. 18. Reglan 5 mg p.o. before meals and at bedtime. 19. Zofran 4 mg p.o. q.6 hours p.r.n. 20. Tacrolimus 2 mg each morning and 1 mg at bedtime. 21. Tramadol 50 mg p.o. q.6 hours p.r.n. Please note that the patient discharged via transfer to another facility and these were medications to be continued during her inpatient admission there. DISCONTINUED MEDICATIONS: 1. Tacrolimus 1 mg p.o. t.i.d. 2. Carvedilol 25 mg daily. 3. Hydralazine 100 mg daily. 4. Reglan 5 mg p.o. b.i.d. 5. Eliquis 2.5 mg p.o. b.i.d. HOSPITAL COURSE: This 69-year-old female presented to our facility after falling at home and being unable to get up on her own. She fell in the evening on 03/09 and was found by her son approximately 17 hours later on the morning of 03/10. She describes her fall as being due to slip having turned to lean on the table and not being close enough to the table. She also reported some hallucinations, including thinking that they were cats in her attic, although she is aware that they were not actually cats. In the ED, she had several imaging studies done including pelvic x-ray which was significant for fracture of the left superior ischial ramus and inferior ischial pubic ramus. Orthopedics was consulted from the ED and determined that the fracture did not need surgery. Other pertinent labs included a troponin of 6.9, rising to 7.4 at the next check. No significant ST changes on EKG. Cardiology was consulted for an NSTEMI. She was given Afrin. She was also given 10 mg of Eliquis. UA was also indicative of infection and Rocephin was started. Notably, her renal function was good and she does not meet criteria for rhabdomyolysis. She was admitted to the telemetry floor for monitoring. Cardiology evaluated again in the morning after admission and recommended cardiac catheterization with possible drug-eluting stent placement. However, this procedure was deferred due to the administration of Eliquis the night previous. Her Eliquis was then stopped and she was started on Lovenox instead. Nephrology was also consulted at the request of her out-of-town sticker on who has managed her for renal transplant so that her tacrolimus levels could be followed. She developed urinary retention on 03/12 and a Estrella catheter was placed. She remained stable throughout her time in our facility. At the request of her son, the patient was transferred to [facility] to receive care from a team who is more familiar with her transplant regimen. She was accepted to that facility by Dr. Sarwat Roca and transferred in stable condition on 03/12 in the morning. DISPOSITION: Stable. DISCHARGE INSTRUCTIONS: Location: Another inpatient facility, [facility]. Diet: Heart healthy. Activity: As tolerated. Followup: Recommend to follow up with PCP upon discharge from [facility]. Recommend referencing discharge summary from [facility] when patient is discharged from that facility for followup on the final course of the acute issues discussed in this discharge summary. Job ID: [id number]
== END 2020-03-12 09:45 | disposition short-term general hospital (02) | DRG 280 ==
LOC: ERS 11:35 → ERHOLD 15:21 → OBSVTOIN 16:25 → 2NO 19:27
PROVIDERS: ADMIT Family Medicine; ATTEND Family Medicine
DX: I21.4 Non-ST elevation (NSTEMI) myocardial infarction (principal); G93.41 Metabolic encephalopathy; S32.9XXA Fracture of unspecified parts of lumbosacral spine and pelvis, initial encounter for closed fracture; N39.0 Urinary tract infection, site not specified; Z94.0 Kidney transplant status; I10 Essential (primary) hypertension; F03.90 Unspecified dementia, unspecified severity, without behavioral disturbance, psychotic disturbance, mood disturbance, and anxiety; R33.9 Retention of urine, unspecified; W01.0XXA Fall on same level from slipping, tripping and stumbling without subsequent striking against object, initial encounter; E03.9 Hypothyroidism, unspecified; Z86.718 Personal history of other venous thrombosis and embolism; Z79.01 Long term (current) use of anticoagulants
CPT/HCPCS: 36415; 51701; 70450; 71045; 72131; 72170; 80048; 80053; 80061; 81003; 81015; 82247; 82550; 82553; 82607; 82746; 83036; 83735; 83880; 84100; 84443; 84484; 85025; 85610; 85730; 87040; 87077; 87086; 87186; 93005; 93010; 93306; 96365; J0696; J1650; J3475; J3490; J7507; J7512